=== PATIENT | female | born 1995 | race Caucasian/White ===

== ENCOUNTER 2020-01-12 22:04 | Emergency (ER) | payer OTHER ==
[~2020-01-12] VITALS: Ht 165.1 cm; Wt 104.2 kg
[2020-01-12] MEDS ORDERED: SYNT50TA PO (22:18)
[2020-01-12 22:54] LABS: BASO % 0.2 % (0.0-1.0); EOS # 0.1 10^3/uL (0.0-0.5); EOS % 0.8 % (0.0-3.0); HEMATOCRIT 36.8 % (36.0-47.0); HEMOGLOBIN 12.6 g/dl (12.0-15.5); LYMPH % 33.4 % (24.0-44.0); MEAN CORPUSCULAR HEMOGLOBIN 30.3 pg (27.0-33.0); MEAN CORPUSCULAR HGB CONC 34.2 g/dl (32.0-36.5); MEAN CORPUSCULAR VOLUME 88.5 fl (80.0-96.0); MONO # 0.6 10^3/uL (0.0-0.8); MONO % 7.2 % (0.0-5.0); NEUTROPHILS # 5.1 10^3/uL (1.5-8.5); NEUTROPHILS % 58.1 % (36.0-66.0); PLATELET COUNT, AUTOMATED 253 10^3/uL (150-450); RED BLOOD COUNT 4.16 10^6/uL (4.00-5.40); WHITE BLOOD COUNT 8.8 10^3/uL (4.0-10.0)
[2020-01-12 23:32] LABS: BLOOD UREA NITROGEN 9 MG/DL (7-18); CALCIUM LEVEL 9.7 MG/DL (8.5-10.1); CARBON DIOXIDE LEVEL 24 MEQ/L (21-32); CHLORIDE LEVEL 108 MEQ/L (98-107); CREATININE FOR GFR 0.66 MG/DL (0.55-1.30); GLOMERULAR FILTRATION RATE > 60.0 (>60); GLUCOSE, FASTING 103 MG/DL (70-100); HCG, SERUM QUANTITATIVE 65632 MIU/ML; POTASSIUM SERUM 3.8 MEQ/L (3.5-5.1); SODIUM LEVEL 138 MEQ/L (136-145)
--- NOTE | 2020-01-13 01:10 | REPVR ---
PROCEDURE INFORMATION: Exam: US First Trimester, Transabdominal Exam date and time: 01/13/2020 12:45 AM Age: 25 years old Clinical indication: Lmp or gestational age (in weeks): 11/08/19; Antepartum complications; Bleeding; ; Additional info: Vaginal bleeding TECHNIQUE: Imaging protocol: Real-time transabdominal obstetrical ultrasound of the maternal pelvis and a first trimester , less than 14 weeks 0 days, with image documentation. COMPARISON: No relevant prior studies available. FINDINGS: Diamniotic dichorionic twin gestation. No evidence of implantational hemorrhage. Twin A is positioned maternal right. Winlock-rump length measurement is 15 mm heart motion with Doppler detect a rate of 158 bpm Twin B is positioned maternal left. Winlock-rump length measurement is 14 mm. heart motion with Doppler detects a rate of 144 bpm Right and left ovary appear normal with normal Doppler flow. Right ovarian corpus luteum cyst measuring 2 cm. Both right and left ovary demonstrate normal Doppler flow. No abnormal volume of free pelvic fluid. IMPRESSION: Dichorionic diamniotic twin gestation 7 weeks 6 days estimated gestational age with no complication Electronically signed by: Jose Miguel Somers On 01/13/2020 01:09:45 AM
[2020-01-13 01:40] VITALS: BP 136/82
== END 2020-01-13 01:47 | disposition home or self-care (01) ==
LOC: M ED 22:04
DX: O26.851 Spotting complicating pregnancy, first trimester (principal); O26.891 Other specified pregnancy related conditions, first trimester; O10.011 Pre-existing essential hypertension complicating pregnancy, first trimester; Z3A.01 Less than 8 weeks gestation of pregnancy

== ENCOUNTER 2020-01-17 21:17 | Emergency (ER) | payer OTHER ==
[~2020-01-17] VITALS: Ht 165.1 cm; Wt 103.2 kg
[~2020-01-17 21:17] MED LIST: SYNT50TA PO
[2020-01-17 22:18] LABS: BASO % 0.3 % (0.0-1.0); EOS # 0.1 10^3/uL (0.0-0.5); EOS % 0.6 % (0.0-3.0); HEMOGLOBIN 13.6 g/dl (12.0-15.5); LYMPH # 3.2 10^3/uL (1.5-5.0); LYMPH % 29.7 % (24.0-44.0); MEAN CORPUSCULAR HEMOGLOBIN 30.6 pg (27.0-33.0); MEAN CORPUSCULAR HGB CONC 34.9 g/dl (32.0-36.5); MEAN CORPUSCULAR VOLUME 87.6 fl (80.0-96.0); MONO # 0.8 10^3/uL (0.0-0.8); NEUTROPHILS # 6.6 10^3/uL (1.5-8.5); NEUTROPHILS % 61.9 % (36.0-66.0); PLATELET COUNT, AUTOMATED 284 10^3/uL (150-450); RED BLOOD COUNT 4.45 10^6/uL (4.00-5.40); WHITE BLOOD COUNT 10.7 10^3/uL (4.0-10.0)
[2020-01-18 00:42] VITALS: BP 130/68
--- NOTE | 2020-01-18 00:42 | REPVR ---
PROCEDURE INFORMATION: Exam: US First Trimester, Transabdominal Exam date and time: 01/18/2020 12:09 AM Age: 25 years old Clinical indication: Lmp or gestational age (in weeks): 11/17/19; Antepartum complications; Bleeding; ; Additional info: PT here 01/11 twins, veary heavy bleeding/cramping today TECHNIQUE: Imaging protocol: Real-time transabdominal obstetrical ultrasound of the maternal pelvis and a first trimester , less than 14 weeks 0 days, with image documentation. COMPARISON: 1ST TRIMESTER US 01/13/2020 12:20 AM FINDINGS: Gestation: Twin intrauterine gestation which is mono amniotic and monochorionic. Embryonic/ heart rate: Fetus A is on the maternal right with a heartbeat of 170 bpm. The crown-rump length is 17 mm suggesting an age of 8 weeks 1 day. Fetus B is on the maternal left with a heartbeat of 165 bpm. The crown-rump length is 14 mm suggesting an estimated age of 7 weeks 5 days. Placenta: Small subchorionic hemorrhage measuring 31 x 7 x 29 mm. Amniotic fluid: Amniotic fluid is normal for gestational age. MATERNAL: Uterus: Unremarkable. Cervix: Unremarkable. Right adnexa: The right ovary measures 2.4 x 3.0 x 2.4 cm with a small cyst measuring 15 x 10 x 14 mm which may be a corpus luteum cyst. There is right ovarian blood flow. Left adnexa: The left ovary measures 3.2 x 2.2 x 2.9 cm and demonstrates blood flow. Intraperitoneal space: No intraperitoneal free fluid. IMPRESSION: 1. Live twin gestation. Fetus A suggests an age of 8 weeks 1 day. Fetus B suggests an age of 7 weeks 5 days. 2. Small subchronic hemorrhage measuring 31 x 7 x 29 mm. Electronically signed by: Fernando Jara On 01/18/2020 00:41:46 AM
== END 2020-01-18 00:43 | disposition home or self-care (01) ==
LOC: M ED 21:17
DX: O46.91 Antepartum hemorrhage, unspecified, first trimester (principal); O99.281 Endocrine, nutritional and metabolic diseases complicating pregnancy, first trimester; Z3A.08 8 weeks gestation of pregnancy

== ENCOUNTER 2020-03-01 19:37 | Emergency (ER) | payer OTHER ==
[~2020-03-01] VITALS: Ht 165.1 cm; Wt 104.3 kg
[2020-03-01] MEDS ORDERED: PREN1CHW6 PO (19:44)
[2020-03-01] MEDS ORDERED: ASPI81CH33 PO (19:44)
[2020-03-01 20:08] LABS: BASO % 0.2 % (0.0-1.0); EOS # 0.1 10^3/uL (0.0-0.5); EOS % 0.5 % (0.0-3.0); HEMATOCRIT 36.5 % (36.0-47.0); LYMPH # 2.5 10^3/uL (1.5-5.0); LYMPH % 26.9 % (24.0-44.0); MEAN CORPUSCULAR HEMOGLOBIN 29.4 pg (27.0-33.0); MEAN CORPUSCULAR HGB CONC 32.9 g/dl (32.0-36.5); MEAN CORPUSCULAR VOLUME 89.5 fl (80.0-96.0); MONO # 0.5 10^3/uL (0.0-0.8); MONO % 5.8 % (0.0-5.0); NEUTROPHILS # 6.2 10^3/uL (1.5-8.5); NEUTROPHILS % 66.1 % (36.0-66.0); PLATELET COUNT, AUTOMATED 245 10^3/uL (150-450); RED BLOOD COUNT 4.08 10^6/uL (4.00-5.40); WHITE BLOOD COUNT 9.4 10^3/uL (4.0-10.0)
[2020-03-01 20:39] LABS: BLOOD UREA NITROGEN 7 MG/DL (7-18); CALCIUM LEVEL 9.3 MG/DL (8.5-10.1); CARBON DIOXIDE LEVEL 23 MEQ/L (21-32); CHLORIDE LEVEL 107 MEQ/L (98-107); CREATININE FOR GFR 0.68 MG/DL (0.55-1.30); GLOMERULAR FILTRATION RATE > 60.0 (>60); GLUCOSE, FASTING 124 MG/DL (70-100); POTASSIUM SERUM 3.5 MEQ/L (3.5-5.1); SODIUM LEVEL 138 MEQ/L (136-145)
[2020-03-01 21:37] LABS: HCG, SERUM QUANTITATIVE 51841 MIU/ML
--- NOTE | 2020-03-01 23:01 | REPVR ---
PROCEDURE INFORMATION: Exam: US After First Trimester, Transabdominal Exam date and time: 03/01/2020 9:26 PM Age: 25 years old Clinical indication: Lmp or gestational age (in weeks): 11/08/19; Antepartum complications; Bleeding; ; Additional info: 14w3d preg with twins, vaginal bleeding TECHNIQUE: Imaging protocol: Real-time transabdominal obstetrical ultrasound of the maternal pelvis and a second or third trimester with image documentation. COMPARISON: 1ST TRIMESTER US 01/17/2020 11:43 PM FINDINGS: Gestation: Live intrauterine twin . FETUS A: Presentation: Live intrauterine fetus a in cephalic presentation corresponding with 15 weeks 0 days with SADIQ of 08/22/2020. heart rate: heart rate is 157 bpm. position: Cephalic. Placenta: Grade 0 anterior. There is no placenta previa or abruption. Amniotic fluid: Amniotic fluid volume is normal. BIOMETRY: Gestational age (AUA): 15 weeks Estimated due date (AUA): 08/22/2020 Biparietal diameter: BPD is 29.1 mm. Head circumference: Head circumference is 110.8 mm. Abdominal circumference: Abdominal circumference is 88.5 mm. Femur length: Femur length is 16.8 mm. FETUS B: Presentation: Live intrauterine fetus B in breech presentation corresponding with 15 weeks 0 days with SADIQ of 08/23/2020. heart rate: heart rate is 153 bpm. position: Breech. Placenta: Grade 0 anterior. There is no placenta previa or abruption. Amniotic fluid: Amniotic fluid volume is normal. BIOMETRY: Gestational age (AUA): 15 weeks Estimated due date (AUA): 08/22/2020 Biparietal diameter: BPD is 28.9 mm. Head circumference: Head circumference is 110.5 mm. Abdominal circumference: Abdominal circumference is 87.0 mm. Femur length: Femur length is 15.3 mm. MATERNAL : Left ovary is unremarkable measuring 3.2 x 1.9 x 2.7 cm. Right ovary is not seen. Cervix is closed measuring 4.59 cm. IMPRESSION: Live intrauterine twin . Live intrauterine fetus a in cephalic presentation corresponding with 15 weeks 0 days with SADIQ of 08/22/2020. Live intrauterine fetus B in breech presentation corresponding with 15 weeks 0 days with SADIQ of 08/23/2020. No acute findings. Electronically signed by: Roseline Armendariz On 03/01/2020 23:01:21 PM
[2020-03-01 23:49] VITALS: BP 128/76
== END 2020-03-01 23:51 | disposition home or self-care (01) ==
LOC: M ED 19:37
DX: O46.92 Antepartum hemorrhage, unspecified, second trimester (principal); O30.042 Twin pregnancy, dichorionic/diamniotic, second trimester; O26.899 Other specified pregnancy related conditions, unspecified trimester; R10.2 Pelvic and perineal pain; Z3A.15 15 weeks gestation of pregnancy; Z79.899 Other long term (current) drug therapy

== ENCOUNTER 2020-07-30 21:36 | Outpatient (CLI) | payer OTHER, SELFPAY ==
[2020-07-30] VITALS (9 sets, daily range): BP systolic 112–164; BP diastolic 56–105
[~2020-07-30] VITALS: Ht 165.1 cm; Wt 111.6 kg
[~2020-07-30 21:36] MED LIST changes: +ASPI81CH33 PO; +PREN1CHW6 PO
[2020-07-30] MEDS ORDERED: ACET-907 PO (21:48)
[2020-07-30 22:47] LABS: CREATININE,RANDOM URINE 62.8 MG/DL; TOTAL PROTEIN,RANDOM URINE 31.1 MG/DL (0.0-12.0)
[2020-07-30 22:47] LABS: ALT/SGPT 25 U/L (12-78); BILIRUBIN,TOTAL 0.3 MG/DL (0.2-1.0); CREATININE FOR GFR 0.53 MG/DL (0.55-1.30); GLOMERULAR FILTRATION RATE > 60.0 (>60); LDH LACTATE DEHYDROGENASE 197 U/L (84-246); URIC ACID 4.8 MG/DL (2.6-6.0)
[2020-07-30 23:06] LABS: HEMATOCRIT 35.1 % (36.0-47.0); HEMOGLOBIN 11.1 g/dl (12.0-15.5); MEAN CORPUSCULAR HEMOGLOBIN 27.3 pg (27.0-33.0); MEAN CORPUSCULAR HGB CONC 31.6 g/dl (32.0-36.5); MEAN CORPUSCULAR VOLUME 86.2 fl (80.0-96.0); PLATELET COUNT, AUTOMATED 175 10^3/uL (150-450); RED BLOOD COUNT 4.07 10^6/uL (4.00-5.40); WHITE BLOOD COUNT 7.6 10^3/uL (4.0-10.0)
--- NOTE | 2020-07-30 23:45 | IPNPDOC ---
Text Note Date of Service The patient was seen on 07/30/20. NOTE Isabelle is a 25yo at 35+6wks with di/di twin gestation and recent diagn osis of preeclampsia without severe features 2 days ago based on mild-ranging BP and urine protein 430 presents to L&D for c/o persistent 6/10 KOHLI since 1230 today and noting "blurry vision with floaters". She describes the KOHLI as tightness behind her eyes. She endorses feeling ill and lightheaded and nauseous. She reports trying fioricet without improvement and took 1000mg of tylenol at 1230 and another 500mg at 1700 with no improvement. She now reports her headache is worse than it was earlier today. Denies RUQ pain. Endorses significant edema to her hands and feet/ankles. She reports good FM and denies VB, LOF, or DFM. APC: Di/Di twin gestation Hypothyroidism GDMA1 Obesity History of prior section Undesired fertility (planning BTL at time of delivery) DAVIN in first trimester (resolved) Vitals: severe-range BP (165/105 on initial presentation with repeats since mild-ranging and occasional normal ranging), afebrile, normal HR. NST: reactive for both babies [place]: no ctx's seen PE: GEN: patient appearing anxious but well-appearing resting comfortably in NAD, AAO x3 HEENT: NC/AT, airway patent and self-maintained CARDS: well-perfused, +3/4 pitting pedal edema, +1/4 hand edema RESP: no exaggerated respiratory effort appreciated ABD: soft, nontender, gravid, no RUQ tenderness appreciated : deferred Ext: edema noted to b/l LE and hands Skin: warm, pink, dry LABS: Laboratory Tests Test 07/30/20 22:16 Creatinine 0.53 MG/DL (0.55-1.30) L Glomerular Filtration Rate > 60.0 (>60) Total Bilirubin 0.3 MG/DL (0.2-1.0) Aspartate Amino Transf (AST/SGOT) 32 U/L (7-37) Alanine Aminotransferase (ALT/SGPT) 25 U/L (12-78) Laboratory Tests 07/30/20 22:16 Laboratory Tests Test 07/30/20 23:14 Range/Units Bedside Glucose (Misc Panel) 78 70-105 MG/DL A/P: 25yo at 35+6wks presenting for persistent/worsening KOHLI despite fioricet and tylenol in addition to visual changes (floaters but denies scotoma) nausea, not feeling well, and edema. Labs demonstrate stability from in-clinic labs c ompleted 07/28 aside from increase in urine protein from 430 to 495. Initial severe-ranging BP that improved to mild-ranging and normal-ranging before medical mgmt could be initiated. She was given 1000mg tylenol with minimal improvement then given compazine/benadryl with significant improvement in her KOHLI to 05/08. Given her improved status, decision made to disposition home with strict return precautions. She was given BTMZ 12mg IM given for lung maturity and instructed to represent in 24hrs for repeat dose and BP check. She acknowledged understanding. She has close outpatient f/u scheduled on 08/02 and 08/05 in the OB clinic with plan at this time for delivery on 14APR at 37wks. Patient counseled that delivery date could be changed if she develops severe features. All questions answered. Med rec done. Shorty, OB Staff VS,Corey, I+O VS, Corey, I+O Laboratory Tests 07/30/20 22:16 Vital Signs Date Time Temp Pulse Resp B/P (MAP) Pulse Ox O2 Delivery O2 Flow Rate FiO2 07/30/20 22:07 90 147/82 (103) 07/30/20 21:58 98.5 20 JENNYFER GILES DO Jul 30, 2020 23:45
[2020-07-31] VITALS: BP 106/52
[2020-07-31 00:15] VITALS: BP 143/63
[2020-07-31 00:30] VITALS: BP 130/68
[2020-07-31 00:44] VITALS: BP 132/65
[2020-07-31 01:04] VITALS: BP 136/65
[2020-07-31 01:34] VITALS: BP 151/65
[2020-08-03] MEDS ORDERED: FIOR1CAP PO (14:59)
== END 2020-07-31 01:53 | disposition home or self-care (01) ==
LOC: M LDO 21:36
DX: O30.043 Twin pregnancy, dichorionic/diamniotic, third trimester (principal); O14.03 Mild to moderate pre-eclampsia, third trimester; Z3A.36 36 weeks gestation of pregnancy; O99.213 Obesity complicating pregnancy, third trimester; E66.9 Obesity, unspecified; Z68.41 Body mass index [BMI] 40.0-44.9, adult; O99.283 Endocrine, nutritional and metabolic diseases complicating pregnancy, third trimester; E03.9 Hypothyroidism, unspecified; O34.211 Maternal care for low transverse scar from previous cesarean delivery; O24.410 Gestational diabetes mellitus in pregnancy, diet controlled
CPT/HCPCS: 36415; 59025; 82247; 82565; 82570; 83615; 84156; 84450; 84460; 84550; 85027; 96361; 96372; 96374; G0378; G0463; J0131; J0702

== ENCOUNTER 2020-07-31 21:55 | Outpatient (CLI) | payer OTHER ==
[~2020-07-31] VITALS: Ht 165.1 cm; Wt 111.6 kg
[~2020-07-31 21:55] MED LIST changes: +ACET-907 PO
--- NOTE | 2020-07-31 23:52 | IPNPDOC ---
Text Note Date of Service The patient was seen on 07/31/20. NOTE Isabelle is a 25yo at 36+0wks presenting for second BTMZ after being evaluated and treated for severe KOHLI in the setting of preeclampsia without severe features yesterday. Her KOHLI improved to 1/10 after compazine and benadryl and her preeclampsia labs were stable from prior labs. She was dispositioned home in stable condition but returns tonight for repeat BTMZ. She reports her KOHLI has completely resolved, her edema has significantly improved as well. She reports good FM for both babies, denies VB, LOF, or ctx's. Vitals: mild-ranging BP NST: reactive for both babies [place]: no ctx's PE: General: AAOx3, in NAD, resting comfortably in bed HEENT: NC/AT airway patent ad self-maintained ABD: soft, nontender, gravid (S=D) Ext: 1/4 pedal edema noted A/P: 25yo at 36+0wks presenting for second BTMZ. Clinical presentation significantly improved after presentation last night and patient reports continued improvement after dispositioned home yesterday. She admitted to driving down to [place] and shopping yesterday which was most likely cause of her headache and increased edema. We discussed travel restrictions >36wks to be no more than 50miles and I cautioned her given her high risk status of twins and preeclampsia without severe features she should minimize her traveling. She acknowledged understanding and agreed. She will f/u for APFT on 06APR as scheduled. Strict return precautions reviewed. All questions answered. Med rec done. Shorty, OB Staff JENNYFER GILES DO Jul 31, 2020 23:52
[2020-08-03] MEDS ORDERED: FIOR1CAP PO (14:59)
== END 2020-07-31 23:02 | disposition home or self-care (01) ==
LOC: M LDO 21:55
DX: O14.03 Mild to moderate pre-eclampsia, third trimester (principal); Z3A.36 36 weeks gestation of pregnancy; O30.043 Twin pregnancy, dichorionic/diamniotic, third trimester; O99.213 Obesity complicating pregnancy, third trimester; E66.9 Obesity, unspecified; Z68.41 Body mass index [BMI] 40.0-44.9, adult
CPT/HCPCS: 96361; 96372; 96375; G0378; G0463; J0702; J0780; J1200

== ENCOUNTER 2020-08-10 07:05 | Inpatient (IN) | payer OTHER ==
[~2020-08-10] VITALS: Ht 165.1 cm; Wt 108.1 kg
[2020-08-10] VITALS (8 sets, daily range): BP systolic 120–159; BP diastolic 68–90
[~2020-08-10 07:05] MED LIST changes: +FIOR1CAP PO
[2020-08-10 08:23] LABS: HEMOGLOBIN 11.6 g/dl (12.0-15.5); MEAN CORPUSCULAR HEMOGLOBIN 27.5 pg (27.0-33.0); MEAN CORPUSCULAR HGB CONC 32.2 g/dl (32.0-36.5); MEAN CORPUSCULAR VOLUME 85.3 fl (80.0-96.0); PLATELET COUNT, AUTOMATED 176 10^3/uL (150-450); RED BLOOD COUNT 4.22 10^6/uL (4.00-5.40); WHITE BLOOD COUNT 8.4 10^3/uL (4.0-10.0)
[2020-08-10] MEDS ORDERED: MORPHINE PRES-FREE INJ 10 MG/10 ML VIAL (J2274) As Ordered ONE (11:03)
[2020-08-10] MEDS ORDERED: OXYTOCIN 30 UNITS IN 0.9% NaCl 500ML IV BAG (J2590) As Ordered ONE (11:05)
[2020-08-10] MEDS ORDERED: ePHEDrine SULFATE 25 MG/5 ML(5MG/ML) SYRINGE As Ordered ONE (11:10)
[2020-08-10] MEDS ORDERED: dexameTHASONE 4 MG/ML 1ML VIAL (J1100 PER 1MG) As Ordered ONE (11:11)
[2020-08-10] MEDS ORDERED: KETOROLAC 60MG 2ML VIAL As Ordered ONE (11:11)
[2020-08-10] MEDS ORDERED: OXYTOCIN INJ 10 UNITS/ML VIAL (J2590) As Ordered ONE (11:11)
[2020-08-10] MEDS ORDERED: ONDANSETRON 4MG/2ML VIAL As Ordered ONE (11:11)
[2020-08-10] MEDS ORDERED: diphenhydrAMINE 50MG/ML VIAL (J1200) IV PRN (12:47)
[2020-08-10] MEDS ORDERED: NALBUPHINE HCL 10 MG/ML AMP (J2300) IV PRN ×2 (12:47→14:35)
[2020-08-10] MEDS ORDERED: ONDANSETRON 4MG/2ML VIAL IV PRN ×2 (12:47→14:35)
[2020-08-10] MEDS ORDERED: NALOXONE INJ 0.4MG/1ML VIAL (J2310 PER 1MG) IV PRN ×2 (12:47)
[2020-08-10] MEDS ORDERED: METOCLOPRAMIDE INJ 10MG/2ML VIAL (J2765 PER 1) IV PRN (12:47)
[2020-08-10] MEDS ORDERED: fentaNYL 100 MCG/2 ML INJECTION (J3010) IV PRN (14:35)
[2020-08-10] MEDS ORDERED: HYDROMORPHONE HCL 0.5 MG/ 0.5 ML SYRINGE (J1170 PER 1) IV PRN (14:35)
[2020-08-10] MEDS ORDERED: MEPERIDINE INJ 25 MG/ML VIAL (J2175) IV PRN (14:35)
[2020-08-10] MEDS ORDERED: oxyCODONE 5MG TAB PO PRN (14:35)
[2020-08-11 02:00] VITALS: BP 119/58
[2020-08-11 06:00] VITALS: BP 114/58
--- NOTE | 2020-08-11 06:26 | IPNPDOC ---
Progress Note Date of Service: Aug 11, 2020 Day#: 1 Progress Note SUBJECT: Isabelle is a G2 now P2003 s/p ERLTCS with BTL with di/di twins, doing well day # 1. She has been ambulating, voiding spontaneously without issue and tolerating regular diet. Breast feeding without issue. Reports lochia is decreasing. Reports pain controlled on pain medications. OBJECTIVE: VITAL SIGNS: Within normal limits, afebrile. Alert and oriented times three. Abdomen: Fundus firm at U-2. Soft, NTTP. Incision: dressing in place c/d/i ASSESSMENT: Isabelle is a G2 now P2003 s/p ERLTCS with BTL with di/di twins, doing well day # 1. Vitals within normal limits, afebrile, hemodynamically stable with no evidence of infection. PLAN: 1. Discharge to home tomorrow 2. Percocet and Motrin for pain. 3. Encourage breast feeding, regular diet, and ambulation. 4. Patient to remove dressing later today and may shower VS, I&O, 24H, [facility] Vital Signs/I&O Vital Signs Date Time Temp Pulse Resp B/P (MAP) Pulse Ox O2 Delivery O2 Flow Rate FiO2 08/11/20 02:00 98.1 78 16 119/58 (78) 96 Room Air I&O- Last 24 Hours up to 6 AM 08/11/20 06:00 Intake Total 4575 ml Output Total 2750 ml Balance 1825 ml Laboratory Data 24H LABS Laboratory Tests 2 08/10/20 08:02: Nucleated Red Blood Cells % (auto) 0.0, Syphilis Serology NONREACTIVE 08/10/20 08:36: Bedside Glucose (Misc Panel) 79 CBC/BMP Laboratory Tests 08/10/20 08:02 JENNYFER GILES DO Aug 11, 2020 06:26
--- NOTE | 2020-08-11 06:38 | ROOPDOC ---
[facility] Report Of Operation Report of Operation DATE OF PROCEDURE: 08/10/20 PREPROCEDURE DIAGNOSES: 1. History of previous section 2. 37 weeks gestation 3. Gestational Diabetes A1 4. Obesity complicating 5. Undesired fertility 6. Preeclampsia without severe features 7. Di/di twin gestation 8. Hypothyroidism complicating POSTPROCEDURE DIAGNOSES: 1. History of previous section 2. 37 weeks gestation 3. Gestational Diabetes A1 4. Obesity complicating 5. Undesired fertility 6. Preeclampsia without severe features 7. Di/di twin gestation 8. Hypothyroidism complicating 9. Adhesions PROCEDURE: 1. Elective repeat low transverse section 2. [place] bilateral tubal ligation 3. Adhesiolysis SURGEON: Nedra Oro DO INCIDENT ENGINEER: Juli Joya CNM ANESTHESIA: Spinal ESTIMATED BLOOD LOSS: Approximately 500 mL. FLUIDS: 1150ml LR URINE OUTPUT: 50ml COMPLICATIONS: None FINDINGS: Di/Di twin gestation. Baby A male infant in cephalic presentation with APGARS 9/9 weighing 2980g with clear fluid on amniotomy. Baby B girl in cephalic presentation with APGARS 9/9 weighing 2980g with clear fluid on amniotomy with nuchal cord x1. Normal-appearing uterus, bilateral ovaries and fallopian tubes. Dense adhesions of the fascia to the omentum and peritoneum. PROCEDURE NOTE: The risks, benefits, indications and alternatives of the procedure were reviewed with the patient and informed consent was obtained. The patient was taken to the operating room where spinal anesthesia was obtained without difficulty and found to be adequate. She was then prepped and draped in the normal, sterile fashion in the dorsal supine position with a leftward tilt. A Pfannenstiel skin incision was then made with the scalpel and carried through to the underlying layer of fascia with the Bovie. The fascia was incised in the midline and the incision extended laterally with the Gutiérrez scissors. The superior aspect of the fascial incision was grasped with the Ryan clamps, elevated, and the underlying rectus muscles dissected off with the Bovie. Attention was then turned to the inferior aspect of this incision, which, in a similar fashion, was grasped, tented up with the Ryan clamps and the rectus muscle dissected off aided with gutiérrez scissors. Rectus muscles were then at the midline; the peritoneum identified, tented up using two Sherine clamps, and entered sharply with Metzenbaum scissors. There were noted to be omental adhesions to the posterior aspect of the fascia that were transected using Bovie cautery. The peritoneal incision was then extended with good visualization of the bladder. The Mobius self-retaining retractor was then inserted. The vesicouterine peritoneum was then identified, grasped with the pick-ups and entered sharply with the Metzenbaum scissors. This incision was then extended laterally and the bladder flap created digitally. Next, the lower uterine segment was incised in a transverse fashion with the scalpel. The uterine incision was then extended manually. The amniotic sac was artificially ruptured, productive of clear fluid. Baby A was found to be in cephalic presentation. The infants head delivered atraumatically in the ROT position through the hysterotomy without difficultly. The was dried on the surgical field with vigorous spontaneous cry and the cord doubly clamped and cut after 30 seconds of delayed cord clamping. The was handed off to the waiting pediatricians. A Cord blood sample was obtained. Baby As cord was marked with one clamp. Baby B was found to be in cephalic presentation. The amniotic sac was artificially ruptured, productive of clear fluid. Baby Bs head delivered atraumatically in the LOT position through the hysterotomy without difficultly. A nuchal cord was manually reduced. The was dried on the surgical field with vigorous spontaneous cry and the cord doubly clamped and cut after 30 seconds of delayed cord clamping. The infant was handed off to the waiting pediatricians. A Cord blood sample was obtained. Baby Bs cord was marked with two clamps. Pitocin IV bolus was initiated by anesthesia upon delivery of Baby B. The placenta was then removed spontaneously with gentle traction on the umbilical cord. The uterus was cleared of all clots and debris. The uterine incision was repaired with 0-monocryl in a running, locked fashion with hemostasis achieved. A bilateral tubal ligation was then performed per the patients request. The fallopian tubes were followed out to their fimbriated end on both sides. The left fallopian tube was grasped with a Stanley clamp and the mesosalpinx incised parallel to the fallopian tube in an avascular plane using Bovie cautery. Two free ties of plain catgut were passed through the defect and zuleyma jennifer around the fallopian tube in its proximal and distal segment and tied. The tubal segment between the two sutures was then excised using Metzenbaum scissors. Approximately 3 cm of tube was excised with telescoping of the tubal lumen noted and sent to pathology. It was noted that there was bleeding of the mesosalpinx and distal segment therefore 3-0 vicryl was used in a running, non- locking fashion along the mesosalpinx to achieve hemostasis. In an identical fashion, the patients right fallopian tube was then grasped with a Martita clamp. An identical procedure was then performed on this fallopian tube with a 3 cm segment excised and sent to pathology. Excellent hemostasis was noted and the tubes were returned to the abdomen. Reinspection of the hysterotomy was notable for hemostasis. The Mobius self-retaining retractor was removed from the abdomen. The fascia was reapproximated with 0-vicryl in a running fashion. The subcutaneous layer was closed with 3-0 vicryl in a running fashion in two layers. The skin was then closed with 4-0 monocryl in a subcuticular fashion. The incision was then dressed with steri-strips and a pressure dressing applied. At the completion of the case, bimanual exam performed with good uterine tone and minimal vaginal bleeding. The patient tolerated the procedure well. Sponge, lap and needle counts were correct times three. The patient was taken to the recovery room in stable condition. NEDRA ORO DO Aug 11, 2020 06:24
[2020-08-11 08:09] LABS: HEMATOCRIT 30.5 % (36.0-47.0); HEMOGLOBIN 9.7 g/dl (12.0-15.5); MEAN CORPUSCULAR HEMOGLOBIN 27.7 pg (27.0-33.0); MEAN CORPUSCULAR HGB CONC 31.8 g/dl (32.0-36.5); MEAN CORPUSCULAR VOLUME 87.1 fl (80.0-96.0); PLATELET COUNT, AUTOMATED 168 10^3/uL (150-450); WHITE BLOOD COUNT 10.4 10^3/uL (4.0-10.0)
[2020-08-11 10:00] VITALS: BP 132/63
[2020-08-11 14:00] VITALS: BP 148/65
[2020-08-11 16:00] VITALS: BP 133/59
[2020-08-11 22:00] VITALS: BP 124/62
[2020-08-12 06:00] VITALS: BP 137/63
--- NOTE | 2020-08-12 09:17 | OBDS ---
[facility] Obstetrical Discharge Sum. Obstetrical Discharge Summary Date: Aug 12, 2020 : 2 Term: 3 VDRL: Non-Reactive Rh: Positive Rubella: Immune Labor 37 weeks Delivery ERLTCS with BTL Anesthesia: Regional Anesthesia A/P, Post Course List any complications PREPROCEDURE DIAGNOSES: 1. History of previous section 2. 37 weeks gestation 3. Gestational Diabetes A1 4. Obesity complicating 5. Undesired fertility 6. Preeclampsia without severe features 7. Di/di twin gestation 8. Hypothyroidism complicating POSTPROCEDURE DIAGNOSES: 1. History of previous section 2. 37 weeks gestation 3. Gestational Diabetes A1 4. Obesity complicating 5. Undesired fertility 6. Preeclampsia without severe features 7. Di/di twin gestation 8. Hypothyroidism complicating 9. Adhesions PROCEDURE: 1. Elective repeat low transverse section 2. [place] bilateral tubal ligation 3. Adhesiolysis FINDINGS: Di/Di twin gestation. Baby A male in cephalic presentation with APGARS 9/9 weighing 2980g with clear fluid on amniotomy. Baby B girl infant in cephalic presentation with APGARS 9/9 weighing 2980g with clear fluid on amniotomy with nuchal cord x1. Normal-appearing uterus, bilateral ovaries and fallopian tubes. Dense adhesions of the fascia to the omentum and peritoneum. Condition at Discharge: Stable Discharge Instructions: Home Activity: pelvic rest and no lifting >15lbs for 6 weeks Diet: regular as tolerated Medications: @ [place] Follow-up: 2 weeks [place] [facility] SUBJECT: Isabelle is a G2 now P2003 s/p ERLTCS with BTL with di/di twins, doing well day #2. She has been ambulating, voiding spontaneously without issue and tolerating regular diet. Breast feeding without issue. Reports lochia is decreasing. Reports pain controlled on pain medications. OBJECTIVE: VITAL SIGNS: Within normal limits, afebrile. Alert and oriented times three. Abdomen: Fundus firm at U-2. Soft, NTTP. Incision: c/d/i with steri strips in place ASSESSMENT: Isabelle is a G2 now P2003 s/p ERLTCS with BTL with di/di twins, doing well day #2. Vitals within normal limits, afebrile, hemodynamically stable with no evidence of infection. PLAN: 1. Discharge to home today 2. Percocet and Motrin for pain. 3. Encourage breast feeding, regular diet, and ambulation. 4. Patient to remove dressing later today and may shower 5. Patient counseled on strict return precautions 6. Patient to f/u in 2 weeks for incision check and 2-3 days for BP check JENNYFER GILES DO Aug 11, 2020 06:40
== END 2020-08-12 12:00 | disposition home or self-care (01) | DRG 785 ==
LOC: M LDI 07:05 → M OBS 16:19
PROC: 0UB70ZZ Excision of Bilateral Fallopian Tubes, Open Approach (ICD-10-PCS; 2020-08-10)
PROC: 10D00Z1 Extraction of Products of Conception, Low, Open Approach (ICD-10-PCS; principal; 2020-08-10 09:30)
DX: O34.211 Maternal care for low transverse scar from previous cesarean delivery (principal); Z37.2 Twins, both liveborn; Z3A.37 37 weeks gestation of pregnancy; E66.9 Obesity, unspecified; O99.214 Obesity complicating childbirth; E03.9 Hypothyroidism, unspecified; O99.284 Endocrine, nutritional and metabolic diseases complicating childbirth; O14.94 Unspecified pre-eclampsia, complicating childbirth; O30.042 Twin pregnancy, dichorionic/diamniotic, second trimester; Z30.2 Encounter for sterilization; O24.410 Gestational diabetes mellitus in pregnancy, diet controlled; Z68.37 Body mass index [BMI] 37.0-37.9, adult